=== PATIENT | female | born 1950 | race Caucasian/White ===

== ENCOUNTER → 2016-11-15 | Outpatient (CLI) | payer MEDICARE, BC ==
[~2016-11-15] MED LIST: BACTRIM DS 8001 TAB PO; BUSPAR DIVIDOSE15 MG PO; CELEXA 20MG20 MG/TAB PO; CIPRO 500MG TA500 MG PO; CLEOCIN HCL300 MG PO; COZAAR 50MG50 MG/TAB PO; DESYREL 50MG50 MG PO; FERROUS SU325 MG/TAB PO; GLUCOPHAGE500 MG/TAB PO; HYZAAR 25 MG-101 TAB PO; IBUPROFEN; MAG-OX 400400 MG/TAB PO; NO HOME MEDICATIONS; NORCO 325 MG-51 TAB PO; PERCOCET 5/321 UDTAB PO; PROTONIX 40MG T40 MG PO; SINGULAIR 110 MG/TAB PO; TRILEPTAL 150M150 MG PO; ULTRAM 50MG TAB50 MG PO; VESICARE PO; ZOFRAN 4MG T4 MG/TAB PO
== END ==
LOC: MC.RAD 08:35
DX: Z12.31 Encounter for screening mammogram for malignant neoplasm of breast (principal); Z80.3 Family history of malignant neoplasm of breast

== ENCOUNTER → 2017-10-31 | Outpatient (CLI) | payer MEDICARE, BC | LOC: SUN.DIA 09:21 | DX: E11.9 Type 2 diabetes mellitus without complications (principal); I10 Essential (primary) hypertension; E66.9 Obesity, unspecified; Z68.42 Body mass index [BMI] 45.0-49.9, adult; Z71.3 Dietary counseling and surveillance; Z87.891 Personal history of nicotine dependence | CPT/HCPCS: G0108 ==

== ENCOUNTER → 2017-11-01 | Outpatient (CLI) | payer MEDICARE, BC | LOC: SUN.DIA 08:50 | DX: E11.9 Type 2 diabetes mellitus without complications (principal); I10 Essential (primary) hypertension; E66.9 Obesity, unspecified; Z68.42 Body mass index [BMI] 45.0-49.9, adult; Z71.3 Dietary counseling and surveillance; Z87.891 Personal history of nicotine dependence ==

== ENCOUNTER → 2018-02-20 | Outpatient (CLI) | payer MEDICARE, BC | LOC: MC.RAD 08:27 | DX: Z12.31 Encounter for screening mammogram for malignant neoplasm of breast (principal) ==

== ENCOUNTER → 2019-03-15 | Outpatient (CLI) | payer MEDICARE, OTHER | LOC: MC.RAD 13:07 | DX: Z12.31 Encounter for screening mammogram for malignant neoplasm of breast (principal) ==

== ENCOUNTER → 2021-02-25 | Outpatient (CLI) | payer MEDICARE, OTHER ==
[~2021-02-25] MED LIST changes: +ASPIRIN E.C. 8181 MG PO; +CARDIZEM120 MG PO; +FLEXERIL 1010 MG/TAB PO; +HCTZ12.5TAB PO; +LIDO3%CREAM TP; +MELATONIN5 M1 SL; +ZOCOR 10MG10 MG PO
== END ==
LOC: MC.RAD 09:10
DX: Z12.31 Encounter for screening mammogram for malignant neoplasm of breast (principal)

== ENCOUNTER → 2021-03-08 | Outpatient (CLI) | payer MEDICARE, OTHER ==
[~2021-03-08] VITALS: Ht 162.6 cm; Wt 113.6 kg
[2021-03-08 13:42] VITALS: BP 144/79; PULSE 82
[2021-03-08 14:40] VITALS: BP 142/76; PULSE 86
== END ==
LOC: COL.RAD 13:00
DX: M54.5 Low back pain (principal)
CPT/HCPCS: J3301

== ENCOUNTER → 2021-10-12 | Outpatient (CLI) | payer MEDICARE, OTHER ==
[~2021-10-12] VITALS: Ht 162.6 cm; Wt 113.0 kg
[2021-10-12 09:16] VITALS: BP 109/67; PULSE 82; TEMP 98.4
[2021-10-12 10:40] VITALS: BP 137/70; PULSE 83
== END ==
LOC: COL.RAD 08:47
DX: M54.50 Low back pain, unspecified (principal)
CPT/HCPCS: J3301

== ENCOUNTER → 2022-03-03 | Outpatient (CLI) | payer MEDICARE, OTHER ==
[2022-02-28 14:11] VITALS: BP 116/62; PULSE 55
[~2022-03-03] VITALS: Ht 162.6 cm; Wt 112.2 kg
[2022-03-03 12:43] VITALS: BP 163/94; PULSE 94; TEMP 98.3
[2022-03-03 13:50] VITALS: BP 158/90; PULSE 98
== END ==
LOC: COL.RAD 12:25
DX: M54.50 Low back pain, unspecified (principal)
CPT/HCPCS: J3301

== ENCOUNTER → 2022-04-05 | Outpatient (CLI) | payer MEDICARE, OTHER | LOC: MC.RAD 11:15 | DX: Z12.31 Encounter for screening mammogram for malignant neoplasm of breast (principal) ==